=== PATIENT | male | born 1975 | race Two or more races ===

== ENCOUNTER → 2020-10-22 10:30 | Outpatient (REF) | payer MEDICAID, SELFPAY ==
--- NOTE | 2020-10-22 11:00 | CA_ITS ---
Acquisition Time: 2020-10-22 10:59:52 Total Exercise Time: 00:08:50 Test Indications: Dyspnea Medications: NAPROXEN Protocol: WILLY Max HR: 179 BPM 101% of Pred: 176 BPM Max BP: 142/066 mmHG Max Work Load: 10.1 METS Exercise stress ECHO using Willy protocol total of 8 min 50 sec, METS and TAPHR up to 102 %. Pt denies any anginal sx. EKG without arrhythmias, no ischemic changes seen during exercise or in recovery. ECHO images taken at rest and immediately after peak exercise HR achieved. Definity contrast used. Normotensive response to exercise. Test reviewed with Dr. Wiley. Referred By: Yosi Shepherd Overread By: Karol Sousa NP
== END ==
LOC: HO.CARD 10:30
PROVIDERS: Visit Provider Internal Medicine Cardiovascular Disease
DX: R07.9 Chest pain, unspecified (principal)
CPT/HCPCS: 93350; Q9957

== ENCOUNTER 2024-07-12 15:55 | Outpatient (REF) | payer MEDICAID, SELFPAY ==
[2024-07-12 17:50] LABS: MANUAL DIFF FLAG NO
[2024-07-12 17:55] LABS: Basophils Percent Auto 0.4 % (0-2); Eosinophils Absolute Auto 0.1 X10*3/uL (0.0-0.4); Eosinophils Percent Auto 1.9 % (0-4); Hematocrit 46.7 % (42.0-52.0); Hemoglobin 15.9 g/dl (14.0-18.0); Imm Gran Abs Auto 0.03 X10*3/uL (0.00-0.03); Imm Gran Pct Auto 0.4 % (0.0-0.4); Lymphocytes Percent Auto 27.8 % (20-40); Mean Corpuscular Hemoglobin 27.8 pg (27.0-33.0); Mean Corpuscular Volume 81.6 fL (80.0-98.0); Mean Platelet Volume 9.8 fL (9.4-12.4); Monocytes Absolute Auto 0.4 X10*3/uL (0.1-1.2); Monocytes Percent Auto 5.3 % (2-11); Neutrophils Absolute Auto 4.6 x10*3/uL (2.0-8.3); Neutrophils Percent Auto 64.2 % (45-73); Platelet Count 280 X10*3/uL (160-400); Red Blood Count 5.72 X10*6/uL (4.60-5.80); Red Cell Distribution Width 13.1 % (11.0-16.0); White Blood Count 7.2 X10*3/uL (4.8-10.8)
[2024-07-12 18:07] LABS: Appearance Urine Clear; Color Urine Yellow; Glucose Urine UA Negative (Negative); Leukocyte Esterase Urine Negative (Negative); Nitrite Urine Negative (Negative); PH 5.5 (5.0-9.0); Specific Gravity - Urine 1.025 (1.005-1.025); Urine Blood Negative (Negative); Urine Ketones Trace mg/dL (Negative); Urine Protein Negative (Neg-Trace)
[2024-07-12 18:10] LABS: Bacteria Urine None Seen (None Seen); Hyaline Casts Urine 0-2 /LPF (0-2); RBC Urine 0-2 /HPF (0-2); Squamous Epithelial Cell Urine 0-2 /HPF (0-2); WBC Urine 0-5 /HPF (0-5)
[2024-07-12 18:22] LABS: Alanine Aminotransferase 45 U/L (0-40); Albumin Level 4.5 g/dL (3.5-5.0); Alkaline Phosphatase 102 U/L (39-117); Anion Gap 10 (12-20); Aspartate Amino Transferase 41 U/L (5-37); Bilirubin Total 0.6 mg/dL (0.0-1.0); Blood Urea Nitrogen 13 mg/dL (9-16); Calcium 10.1 mg/dL (8.4-10.2); Carbon Dioxide 27 mmol/L (22-29); Chloride 107 mmol/L (96-108); Cholesterol 203 mg/dL (<200); Estimated Glomerular Filt Rate > 60; Glucose Random 118 mg/dL (60-115); HDL Cholesterol 38 mg/dL (>40); Potassium 3.8 mmol/L (3.3-5.1); Sodium 140 mmol/L (135-145); Total Protein 8.4 g/dL (6.5-8.0); Triglycerides 563 mg/dL (<150)
[2024-07-12 18:36] LABS: TSH reflex Free T4 1.49 uIU/mL (0.32-4.0)
== END 2024-07-12 15:56 | disposition home or self-care (01) ==
LOC: HO.CHCLDS 15:55
PROVIDERS: Visit Provider Internal Medicine
DX: I10 Essential (primary) hypertension (principal); R30.0 Dysuria
CPT/HCPCS: 36415; 80053; 80061; 81001; 84443; 85025

== ENCOUNTER 2024-07-17 13:18 | Outpatient (REF) | payer MEDICAID, SELFPAY ==
--- OUTSIDE RECORDS SUMMARY | 2024-07-17 15:00 | XMS_ITS | Clinical Summary ---
Author Organization [facility] [place] Address [address] [place] [address] Care Team Providers Care Assembler Unit Name Role Phone Kevin Basurto MD Primary Care Provider [phone] [phone] Surgical History Surgery Date Site/Laterality Comments TONSILLECTOMY PROCEDURE: HISTORICAL TONSILLECTOMY Social History Tobacco Use Types Packs/Day Years Used Date Smoking Tobacco: Never Smokeless Tobacco: Never Alcohol Use Standard Drinks/Week Comments Never 0 (1 standard drink = 0.6 oz pur e alcohol) Sex and Gender Information Value Date Recorded Sex Assigned at Not on file Gender Identity Not on file Sexual Orientation Not on file Obstetrics History Last Filed Vital Signs Vital Sign Reading Time Taken Comments Blood Pressure - - Pulse - - Temperature - - Respiratory Rate - - Oxygen Saturation - - Inhaled Oxygen Concentration - - Weight 81.6 kg (180 lb) 12/04/2021 3:52 PM EDT Height 162.6 cm (5' 4 ) 12/04/2021 3:52 PM EDT Body Mass Index 30.9 12/04/2021 3:52 PM EDT Plan of Treatment Health Maintenance Due Date Last Done Comments Hepatitis B Vaccines (3 of 3 - 19+ 3-dose series) 01/13/2011 11/18/2010, 10/19/2010, 10/13/2009 DTaP,Tdap,and Td Vaccines (3 - Td or Tdap) 10/14/2019 10/13/2009, 09/10/2009 Cholesterol Screening (Lipid Panel) 05/30/2022 Colorectal Cancer Screening: Colonoscopy 05/30/2022 Depression Screening 05/30/2022 HIV Screening 05/30/2022 Hepatitis C Screening 05/30/2022 Social Influencers of Health Screening 05/30/2022 COVID-19 Vaccine (3 - 2023-2 5 season) 2024 01/19/2021, 12/01/2020 Influenza Vaccine (#1) 2024 0, 05/08/2010 MMR Vaccines Aged Out 10/13/2009, 09/10/2009 No longer eligible based on patient's age to complete this topic Meningococcal ACWY Vaccine Aged Out 08/04/2012 N o longer eligible based on patient's age to complete this topic HIB Vaccines Aged Out No longer eligi ble based on patient's age to complete this topic HPV Vaccines Aged Out No longer eligi ble based on patient's age to complete this topic Hepatitis A Vaccines Aged Out No long er eligible based on patient's age to complete this topic IPV Vaccines Aged Out No longer eligi ble based on patient's age to complete this topic Pneumococcal Vaccine: Pediatrics (0 to 5 Years) and At-Risk Patients (6 to 64 Years) Aged Out No longer eligible b ased on patient's age to complete this topic RSV Immunization Patients Under 20 months Aged Out No longer eligible b ased on patient's age to complete this topic Varicella Vaccines Aged Out No longer eligible based on patient's age to complete this topic Care Teams Assembler Unit Relationship Specialty Start Date End Date Kevin Basurto MD [address] [place] [address] PCP - General Internal Medicine 12/07/21
--- OUTSIDE RECORDS SUMMARY | 2024-07-17 15:01 | XMS_ITS | Encounter Summary ---
Author Organization [employer] Address [address] [place] [address] Care Team Providers Care Canal Structure Operator Name Role Phone Kevin Basurto MD Primary Care Provider [phone]- [phone] Encounter Details Date Type Department Care Team (Latest Contact Info) Description 07/12/2024 Travel Social History Tobacco Use Types Packs/Day Years Used Date Smoking Tobacco: Never Passive Smoke Exposure: Never Smokeless Tobacco: Never Sex and Gender Information Value Date Recorded Sex Assigned at Male 04/26/2022 10:27 AM EDT Legal Sex Male 10:27 AM EDT Gender Identity Choose not to disclose 10:27 AM EDT Sexual Orientation Choose not to disclose 2021 10:27 AM EDT documented as of this encounter Plan of Treatment Upcoming Encounters Date Type Department Care Team (Late st Contact Info) Description 08/23/2024 3:15 PM EST Office Visit [facility] [address] [place] [address] Kevin Basurto MD [address] [place] [address] documented as of this encounter Visit Diagnoses Not on filedocumented in this encounter Care Teams Canal Structure Operator Relationship Specialty Start Date End Date Kevin Basurto MD [address] [place] [address] PCP - General Internal Medicine 12/24/14 documented as of this encounter
--- OUTSIDE RECORDS SUMMARY | 2024-07-17 15:01 | XMS_ITS | Clinical Summary ---
Author Organization [employer] Address [address] [facility] [address] [place] [address] Care Team Providers Care Certified Public Accountant Name Role Phone Kevin Basurto MD Primary Care Provider [phone]- [phone] Allergies No known active allergies Medications Blood Pressure kitIndications:E levated BP without diagnosis of hypertension To check the BP daily 1 kit 11/12/19 23 Active SUMAtriptan (Imitrex) 25 MG tabletIndication s:Migraine with aura and without status migrainosus, not intractable Take 1 tablet (25 mg) by mouth 1 (one) time if needed for migraine for up to 27 doses. May repeat dose once in 2 hours if no relief. Do not exceed 2 doses in 24 hours. 9 tablet 2 07/12/19 25 Active topiramate (Topamax) 50 MG tabletIndication s:Migraine with aura and without status migrainosus, not intractable Take 1 tablet (50 mg) by mouth 2 times daily. 60 tablet 11 07/12/19 25 Active methocarbamol (Robaxin) 750 MG tabletIndication s:Muscle spasm of back Take 1 tablet (750 mg) by mouth 4 times daily for 10 days. 40 tablet 07/12/19 25 025 Active celecoxib (CeleBREX) 200 MG capsuleIndicatio ns:Muscle spasm of back Take 1 capsule (200 mg) by mouth 2 times daily. 60 capsule 07/12/19 25 025 Active Omeprazole 20 MG tablet delayed-releaseI ndications:Gastr oesophageal reflux disease without esophagitis Take 1 tablet (20 mg) by mouth Once per day. 30 tablet 3 07/12/19 25 Active finasteride (Propecia) 1 MG tabletIndication s:Dysuria Take 1 tablet (1 mg) by mouth Once per day. Do not crush, chew, or split. 30 tablet 07/12/19 026 Active lisinopril 5 MG tabletIndication s:Primary hypertension Take 1 tablet (5 mg) by mouth Once per day. 30 tablet 07/12/19 026 Active fenofibrate (Tricor) 48 MG tabletIndication s:Hypertriglycer idemia Take 1 tablet (48 mg) by mouth Once per day. 30 tablet 07/13/19 026 Active methocarbamol (Robaxin) 750 MG tabletIndication s:Muscle spasm of back Take 1 tablet (750 mg) by mouth 4 times daily for 10 days. 40 tablet 12/01/19 025 Discontinued(Re order (will not trigger notification to Pharmacy)) topiramate (Topamax) 50 MG tabletIndication s:Migraine with aura and without status migrainosus, not intractable Take 50 mg by mouth 2 times daily. 60 tablet 12/01/19 025 Discontinued(Re order (will not trigger notification to Pharmacy)) SUMAtriptan (Imitrex) 25 MG tabletIndication s:Migraine with aura and without status migrainosus, not intractable Take 1 tablet (25 mg) by mouth 1 (one) time if needed for migraine for up to 27 doses. May repeat dose once in 2 hours if no relief. Do not exceed 2 doses in 24 hours. 9 tablet 2 12/01/19 025 Discontinued(Re order (will not trigger notification to Pharmacy)) amLODIPine (Norvasc) 5 MG tabletIndication s:Primary hypertension Take 1 tablet (5 mg) by mouth Once per day. 30 tablet 07/12/19 025 Discontinued(En tered in error) Active Problems Problem Noted Date Diagnosed Date Chronic allergic rhinitis 11/11/2022 Overview (11/11/2022): Follow up Dr. Strauss Vitamin D deficiency disease 11/11/2022 Overview (11/11/2022): = 14 01/27/10 = 9 07/21/11 Sciatica 11/30/2017 Migraine 01/20/2015 GLENDY on CPAP 06/06/2012 Overview (11/11/2022): CPAP tit 04/[address] Strauss Hypertriglyceridemia 10/20/2011 Headache(784.0) 10/19/2011 Overview (03/27/2023): Suspect due to chronic rhinosinusitis Follow up supervisor enrobing Dr. Strauss Replace inactive dx Encounters Date Type Department Care Team Description 07/13/2024 Telephone [facility] [address] [place] [address] Kevin Basurto MD 07/13/2024 Orders Only [facility] [address] [place] [address] Kevin Basurto MD Transaminitis (Primary Dx); Hypertriglyceridemia 07/12/2024 3:30 PM EST Office Visit [facility] [address] [place] [address] Kevin Basurto MD Primary hypertension (Primary Dx); Migraine with aura and without status migrainosus, not intractable; Muscle spasm of back; Gastroesophageal reflux disease without esophagitis; Dysuria; Dietary counseling; Exercise counseling; Class 1 obesity due to excess calories with serious comorbidity and body mass index (BMI) of 30.0 to 30.9 in adult 07/12/2024 Travel 07/10/2024 Telephone [facility] [address] [place] [address] [phone] Kevin Basurto MD Chart Prep 07/10/2024 Telephone [facility] [address] [place] [phone] Kevin Basurto MD Nurse Triage from Last 3 Months Immunizations Name Administration Dates Next Due Hep B, adult 11/18/2010,10/19/2010,10/13/2009 Influenza injectable quadriv alent preservative free 05/08/2010 Influenza, IIV3, injectable 05/08/2010 MMR 10/13/2009,09/10/2009 Meningococcal C Conjugate 08/04/2012 Meningococcal MCV4P [id number] 08/04/2012 PPD Test 09/12/2009 TD (adult), 2 Lf tetanus tox oid, preservative free, adsorbed 10/13/2009 Tdap 09/10/2009 Social History Tobacco Use Types Packs/Day Years Used Date Smoking Tobacco: Never Passive Smoke Exposure: Never Smokeless Tobacco: Never Tobacco Cessation:Counseling Given: Not Answered Sex and Gender Information Value Date Recorded Sex Assigned at Male 04/26/2022 10:27 AM EDT Legal Sex Male 10:27 AM EDT Gender Identity Choose not to disclose 10:27 AM EDT Sexual Orientation Choose not to disclose 2021 10:27 AM EDT Last Filed Vital Signs Vital Sign Reading Time Taken Comments Blood Pressure 143/98 07/12/2024 3:24 PM EST Pulse 98 07/12/2024 3:24 PM EST Temperature 36.7 ??C (98 ??F) 07/12/2024 3:24 PM EST Respiratory Rate 20 07/12/2024 3:24 PM EST Oxygen Saturation 97% 07/12/2024 3:24 PM EST Inhaled Oxygen Concentration - - Weight 85.3 kg (188 lb) 07/12/2024 3:24 PM EST Height 167.6 cm (5' 6 ) 07/12/2024 3:24 PM EST Body Mass Index 30.34 07/12/2024 3:24 PM EST Plan of Treatment Upcoming Encounters Date Type Department Care Team (Late st Contact Info) Description 08/23/2024 3:15 PM EST Office Visit [facility] [address] [place] [address] Kevin Basurto MD [address] [place] [address] Health Maintenance Due Date Last Done Comments CT Colonography 1976 Colonoscopy 1976 Colorectal Cancer Screening 1976 Depression Screening 1976 FIT DNA/Cologuard 1976 FIT 1976 FOBT 1976 HIV Screening 1976 SDOH Screening 1976 Sigmoidoscopy 1976 Alcohol/Substance Use Screening 1988 Family Planning (PISQ) 1991 Hepatitis C Screening 1994 Hepatitis B Vaccines (3 of 3 - 19+ 3-dose series) 01/13/2011 11/18/2010, 10/19/2010, 10/13/2009 DTaP/Tdap/Td Vaccines (3 - T d or Tdap) 10/14/2019 10/13/2009, 09/10/2009 COVID-19 Vaccine ( - 2023-2 5 season) 2024 01/19/2021, 12/01/2020 Influenza Vaccine (#1) 2024 0, 05/08/2010 Tobacco Screening 11/30/2024 12/01/2023 Zoster Vaccines (1 of 2) 2026 Lipid Panel 07/12/2029 07/12/2024, 11/27/2020 RSV Patients and Patients Aged 60 years or older (1 - 1-dose 75+ series) 2051 Meningococcal Vaccine Aged Out 08/04/2012 No ana maría sebastian eligible based on patient's age to complete [...] patient's age to complete this topic RSV under 20 months Aged Out No longe r eligible based on patient's age to complete this topic Rotavirus Vaccines Aged Out No longer eligible based on patient's age to complete this topic Procedures Procedure Name Priority Date/Time Associated Diagnosis Comments URINALYSIS, COMPLETE Routine 07/12/2024 4:00 PM EST Dysuria TSH W/REFLEX TO FT4 Routine 07/12/2024 3 :55 PM EST Primary hypertension LIPID PANEL, STANDARD Routine 07/12/2024 3:55 PM EST Primary hypertension CBC WITH AUTO DIFFERENTIAL Routine 07/12/2024 3:55 PM EST Primary hypertension COMPREHENSIVE METABOLIC PANEL Routine 07/12/2024 3:55 PM EST Primary hypertension from Last 3 Months Results * Urinalysis Complete (07/12/2024 4:00 PM EST) Color Urine Yellow [facility] Appearance Urine Clear [facility] PH 5.5 5.0 - 9.0 [facility] Glucose Urine UA Negative Negative mg/dL [facility] Urine Blood Negative Negative [facility] Specific [place] - Urine 1.025 1.005 - 1.025 [facility] Urine Protein Negative Neg-Trace mg/dL [facility] Urine Ketones Trace Negative mg/dL [facility] Nitrite Urine Negative Negative [facility] Leukocyte Esterase Urine Negative Negative [facility] RBC Urine 0-2 0 - 2 /HPF [facility] Urine WBC 0-5 0 - 5 /HPF [facility] Urine Squamous Epithelial Cell 0-2 0 - 2 /HPF [facility] Urine Bacteria None Seen None Seen [facility] Hyaline Casts, Urine 0-2 0 - 2 /LPF [facility] Urine (Urine, Random) 07/12/2024 4:00 PM EST 07/12/2024 5:50 PM EST us Kevin Basurto MD LAB URINE ORDERABLES Final Result [facility] [address] [place] [address] [phone] * TSH W/Reflex to FT4 (07/12/2024 3:55 PM EST) TSH reflex Free T4 1.49 0.32 - 4.0 uIU/mL [facility] Blood Venous blood specimen / Unknown 07/12/2024 3:55 PM EST 07/12/2024 5:47 PM EST Kevin Basurto MD LAB BLOOD ORDERABLES Final Result [facility] [address] [place] [phone] * CBC auto differential (07/12/2024 3:55 PM EST) Pathologist [facility] White Blood Count 7.2 4.8 - 10.8 X10*3/uL [facility] Red Blood Count 5.72 4.60 - 5.80 X10*6/uL [facility] Hemoglobin 15.9 14.0 - 18.0 g/dl [facility] Hematocrit 46.7 42.0 - 52.0 % [facility] Mean Corpuscular Volume 81.6 80.0 - 98.0 fL [facility] Mean Corpuscular Hemoglobin 27.8 27.0 - 33.0 pg [facility] Mean Corpuscular HGB Conc 34.0 31.0 - 36.0 g/dl [facility] Red Cell Distribution Width 13.1 11.0 - 16.0 % [facility] Platelet Count 280 160 - 400 X10*3/uL [facility] Mean Platelet Volume 9.8 9.4 - 12.4 fL [facility] Neutrophils Percent Auto 64.2 45 - 73 % [facility] Imm Gran Pct Auto 0.4 0.0 - 0.4 % [facility] Lymphocytes Percent Auto 27.8 20 - 40 % [facility] Monocytes Percent Auto 5.3 2 - 11 % [facility] Eosinophils Percent Auto 1.9 0 - 4 % [facility] Basophils Percent Auto 0.4 0 - 2 % [facility] NRBC Pct Auto 0.0 0.0 - 0.2 /100WBC [facility] Neutrophils Absolute Auto 4.6 2.0 - 8.3 x10*3/uL [facility] Imm Gran Abs Auto 0.03 0.00 - 0.03 X10*3/uL [facility] Lymphocytes Absolute Auto 2.0 1.2 - 4.9 X10*3/uL [facility] Monocytes Absolute Auto 0.4 0.1 - 1.2 X10*3/uL [facility] Eosinophils Absolute Auto 0.1 0.0 - 0.4 X10*3/uL [facility] Basophils Absolute Auto 0.0 0.0 - 0.2 X10*3/uL [facility] NRBC Abs Auto 0.000 0.0 - 0.012 X10*3/uL [facility] Blood Venous blood specimen / Unknown 07/12/2024 3:55 PM EST 07/12/2024 5:47 PM EST us Kevin Basurto MD LAB BLOOD ORDERABLES Final Result [facility] [address] [place] [address] [phone] * (ABNORMAL) Lipid Panel, Standard (07/12/2024 3:55 PM EST) Triglycerides 563(H) <150 mg/dL [facility] Comment:Mild Lipemia.Desirab le Triglyceride: less than 150 mg/dLBorderline High Triglyceride 150-199 mg/dLHigh Triglyceride: 200-499 mg/dLVery High Triglyceride: greater than or equal to 5OO mg/dL Cholesterol 203(H) <200 mg/dL [facility] Comment:Desirable Cholestero l: less than 200 mg/dLBorderline High Cholesterol: 200-239 mg/dLHigh Cholesterol: greater than 239 mg/dL LDL Cholesterol Calculated TNP <100 mg/dL [facility] Comment:Unable to calculate the LDL. The formula of Friedwald,Mcgraw, and Lucrecia is only valid if the triglycerides areless than 400 mg/dl. HDL Cholesterol 38(L) >40 mg/dL [facility] Comment:Desirable HDL: great er than 40 mg/dL Note: This HDL assay may give artificially low results in patients with liver disease. Blood Venous blood specimen / Unknown 07/12/2024 3:55 PM EST 07/12/2024 5:47 PM EST us Kevin Basurto MD LAB BLOOD ORDERABLES Final Result [facility] [address] [place] [address] [phone] * (ABNORMAL) Comprehensive Metabolic Panel (07/12/2024 3:55 PM EST) Sodium 140 135 - 145 mmol/L [facility] Potassium 3.8 3.3 - 5.1 mmol/L [facility] Chloride 107 96 - 108 mmol/L [facility] Carbon Dioxide 27 22 - 29 mmol/L [facility] Anion Gap 10(L) 12 - 20 [facility] Urea Nitrogen (BUN) 13 9 - 16 mg/dL [facility] Creatinine, Serum 0.95 0.5 - 1.4 mg/dL [facility] Estimated Glomerular Filt Rate >60 [facility] Comment:Chronic Kidney Disea se: Estimated GFR < 60 mL/min/[id number] Kidney Disease: Estimated GFR < 15 mL/min/1.73m2 Glucose 118(H) 60 - 115 mg/dL [facility] Calcium 10.1 8.4 - 10.2 mg/dL [facility] Bilirubin, Total 0.6 0.0 - 1.0 mg/dL [facility] Aspartate Amino Transferase 41(H) 5 - 37 U/L [facility] Alanine Aminotransferase 45(H) 0 - 40 U/L [facility] Total Protein 8.4(H) 6.5 - 8.0 g/dL [facility] Albumin Level 4.5 3.5 - 5.0 g/dL [facility] Alkaline Phosphatase 102 39 - 117 U/L [facility] Blood Venous blood specimen / Unknown 07/12/2024 3:55 PM EST 07/12/2024 5:47 PM EST Kevin Basurto MD LAB BLOOD ORDERABLES Final Result [facility] [address] [place] [address] [phone] from Last [address] [place], [place] [address] Care Teams Certified Public Accountant Relationship Specialty Start Date End Date Kevin Basurto MD [address] [place] [phone] PCP - General Internal Medicine 12/24/14
--- OUTSIDE RECORDS SUMMARY | 2024-07-17 15:01 | XMS_ITS | Encounter Summary ---
Author Organization [employer] Address [address] [facility] 7 [place] [address] Care Team Providers Care Meter And Regulator Shop Supervisor Name Role Phone Kevin Basurto MD Primary Care Provider +1- [phone] Reason for Visit * Reason Onset Date Comments Chart Prep 07/10/2024 Encounter Details Date Type Department Care Team (Late st Contact Info) Description 07/10/2024 Telephone [facility] [address] [place] [address] Kevin Basurto MD [address] [place] [phone] Chart Prep Social History Tobacco Use Types Packs/Day Years [...] AM EDT documented as of this encounter Miscellaneous Notes * Telephone Encounter - Mary Sofia [place] - 07/10/2024 8:27 PM EST Chart Prep Labs: not applicable Images: not applicable Vaccines due: yes Referrals: n/a Screenings: colonoscopy , STI screening Overdue care gaps: Sbirt, SDOH, PHQ-9 documented in this encounter Plan of Treatment Upcoming Encounters Date Type Department Care Team (Late st Contact Info) Description 08/23/2024 3:15 PM EST Office Visit [facility] [address] [place] [address] Kevin Basurto MD [address] [place] [address] documented as of this encounter Visit Diagnoses Not on filedocumented in this encounter Care Teams Meter And Regulator Shop Supervisor Relationship Specialty Start Date End Date Kevin Basurto MD [address] [place] [address] PCP - General Internal Medicine 12/24/14 documented as of this encounter
--- OUTSIDE RECORDS SUMMARY | 2024-07-17 15:01 | XMS_ITS | Encounter Summary ---
Author Organization [employer] Address [address] [place] [address] 7 [place] [address] Care Team Providers Care Patcher Bowling Ball Name Role Phone Kevin Basurto MD Primary Care Provider [phone]- [phone] Encounter Details Date Type Department Care Team (Late st Contact Info) Description 07/12/2024 3:30 PM EST Office Visit [facility] MED & PEDS [address], [place] [phone] Kevin Basurto MD [address] [place] [address] Primary hypertension (Primary Dx); Migraine with aura and without status migrainosus, not intractable; Muscle spasm of back; Gastroesophageal reflux disease without esophagitis; Dysuria; Dietary counseling; Exercise counseling; Class 1 obesity due to excess calories with serious comorbidity and body mass index (BMI) of 30.0 to 30.9 in adult Social History Tobacco Use Types Packs/Day Years [...] AM EDT documented as of this encounter Last Filed Vital Signs Vital Sign Reading [...] Mass Index 30.34 07/12/2024 3:24 PM EST documented in this encounter Progress Notes * Kevin Basurto MD - 07/12/2024 3:30 PM EST Subjective Patient ID: Victor Manuel Alaniz is a 49 y.o. adult who presents for No chief complaint on file.. HPI Patient is here with multiple concern: 1) history of back pain that started 1 week ago located on the left lower back and radiating to theleft lower limb posteriorly. The pain is exacerbated by standing for long. And by walking. Denies any fever/incontinence/urinary retention/saddle anesthesia. 2) patient is complaining of dysuria while [place]. Did not have a urinalysis over there. No reported fever over the. Treated with finasteride with improvement of his symptoms. He is requesting to get a refill here. 3) history of gastroesophageal reflux disease. Patient admits dietary indiscretion is getting greasy food, spicy food etc. He would like to get a refill on his omeprazole. 4) history of migraine headache. Was treated in the past with sumatriptan and Topamax which controlled his headache. Has been using Tylenol for his headache 3-4 times a week lately. He also admits photophobia and phonophobia. He would like to resume Topamax and sumatriptan. Patient Active Problem List Diagnosis Chronic allergic rhinitis Headache(784.0) Hypertriglyceridemia Migraine GLENDY on CPAP Sciatica Vitamin D deficiency disease Current Outpatient Medications on File Prior to Visit Medication Sig Dispense Refill Blood Pressure kit To check the BP daily 1 kit 0 [DISCONTINUED] methocarbamol (Robaxin) 750 MG tablet Take 1 tablet (750 mg) by mouth 4 times daily for 10 days. 40 tablet 0 [DISCONTINUED] SUMAtriptan (Imitrex) 25 MG tablet Take 1 tablet (25 mg) by mouth 1 (one) time if needed for migraine for up to 27 doses. May repeat dose once in 2 hours if no relief. Do not exceed 2 doses in 24 hours. 9 tablet 2 [DISCONTINUED] topiramate (Topamax) 50 MG tablet Take 50 mg by mouth 2 times daily. 60 tablet 11 No current facility-administered medications on file prior to visit. No Known Allergies Review of Systems Constitutional: Negative for appetite change, chills, diaphoresis, fatigue and fever. HENT: Negative for dental problem, drooling and ear discharge. Respiratory: Negative for choking and shortness of breath. Cardiovascular: Negative for palpitations and leg swelling. Endocrine: Negative for cold intolerance, heat intolerance and polydipsia. Genitourinary: Positive for dysuria. Negative for enuresis, flank pain, frequency and genital sores. Musculoskeletal: Positive for back pain. Negative for gait problem, joint swelling, myalgias, neck pain and neck stiffness. Objective Physical Exam Constitutional: General: Victor Manuel is not in acute distress. Appearance: Normal appearance. Victor Manuel is obese. Victor Manuel is not ill-appearing, toxic-appearing or diaphoretic. Cardiovascular: Rate and Rhythm: Normal rate. Pulmonary: Effort: Pulmonary effort is normal. Musculoskeletal: Lumbar back: Spasms and tenderness present. Negative right straight leg raise test and negative left straight leg raise test. Neurological: General: No focal deficit present. Mental Status: Victor Manuel is alert. Assessment/Plan Diagnoses and all orders for this visit: Primary hypertension Comments: Uncontrolled DASH diet Start Orders: - Comprehensive Metabolic Panel; Future - CBC auto differential; Future - Lipid Panel, Standard; Future - TSH W/Reflex to FT4; Future - lisinopril 5 MG tablet; Take 1 tablet (5 mg) by mouth Once per day. Migraine with aura and without status migrainosus, not intractable Comments: Advised to avoid using sumatriptan more than 3 times a week for breakthrough headache Orders: - SUMAtriptan (Imitrex) 25 MG tablet; Take 1 tablet (25 mg) by mouth 1 (one) time if needed for migraine for up to 27 doses. May repeat dose once in 2 hours if no relief. Do not exceed 2 doses in 24 hours. - topiramate (Topamax) 50 MG tablet; Take 1 tablet (50 mg) by mouth 2 times daily. Muscle spasm of back Comments: Moist heat Gentle stretching exercises Follow-up in 4 weeks as scheduled Orders: - methocarbamol (Robaxin) 750 MG tablet; Take 1 tablet (750 mg) by mouth 4 times daily for 10 days. - celecoxib (CeleBREX) 200 MG capsule; Take 1 capsule (200 mg) by mouth 2 times daily. Gastroesophageal reflux disease without esophagitis Comments: Head of bed elevation Avoid dietary irritants Avoid eating 3 hours prior to bedtime Orders: - Omeprazole 20 MG tablet delayed-release; Take 1 tablet (20 mg) by mouth Once per day. Dysuria - Urinalysis Complete; Future - finasteride (Propecia) 1 MG tablet; Take 1 tablet (1 mg) by mouth Once per day. Do not crush, chew, or split. Dietary counseling Exercise counseling Class 1 obesity due to excess calories with serious comorbidity and body mass index (BMI) of 30.0 to 30.9 in adult Discussed calorie deficit, recommended reduction of 20-30% of maintenance calories; ceramic capacitor processor referral offered. Recommended to decrease soda and sugary beverage consumption. Recommended at least 20 g per meal of protein to assist with satiety. Recommended at least 150 min/week of moderate intensity exercise. documented in this encounter Plan of Treatment Upcoming Encounters Date Type Department Care Team (Late st Contact Info) Description 08/23/2024 3:15 PM EST Office Visit [facility] MED & PEDS [address] [place] [phone] Kevin Basurto MD [address] [place] [phone] documented as of this encounter Procedures Procedure Name Priority Date/Time Associated Diagnosis Comments URINALYSIS, COMPLETE Routine 07/12/2024 4:00 PM EST Dysuria TSH W/REFLEX TO FT4 Routine 07/12/2024 3 :55 PM EST Primary hypertension CBC WITH AUTO DIFFERENTIAL Routine 07/12/2024 3:55 PM EST Primary hypertension LIPID PANEL, STANDARD Routine 07/12/2024 3:55 PM EST Primary hypertension COMPREHENSIVE METABOLIC PANEL Routine 07/12/2024 3:55 PM EST Primary hypertension documented in this encounter Results * Urinalysis Complete (07/12/2024 4:00 PM EST) Color Urine Yellow [facility] Appearance Urine Clear [facility] PH 5.5 5.0 - 9.0 [facility] Glucose Urine UA Negative Negative mg/dL [facility] Urine Blood Negative Negative [facility] Specific [place] - Urine 1.025 1.005 - 1.025 [facility] Urine Protein Negative Neg-Trace mg/dL [facility] Urine Ketones Trace Negative mg/dL [facility] Nitrite Urine Negative Negative [facility] Leukocyte Esterase Urine Negative Negative [facility] RBC Urine 0-2 0 - 2 /HPF [facility] Urine WBC 0-5 0 - 5 /HPF [facility] Urine Squamous Epithelial Cell 0-2 0 - 2 /HPF [facility] Urine Bacteria None Seen None Seen [facility] Hyaline Casts, Urine 0-2 0 - 2 /LPF [facility] Urine (Urine, Random) 07/12/2024 4:00 PM EST 07/12/2024 5:50 PM EST Kevin Basurto MD LAB URINE ORDERABLES Final Result [facility] [address] [place] [phone] * TSH W/Reflex to FT4 (07/12/2024 3:55 PM EST) TSH reflex Free T4 1.49 0.32 - 4.0 uIU/mL [facility] Blood Venous blood specimen / Unknown 07/12/2024 3:55 PM EST 07/12/2024 5:47 PM EST us Kevin Basurto MD LAB BLOOD ORDERABLES Final Result [facility] [address] [place] [address] [phone] * (ABNORMAL) Lipid Panel, Standard (07/12/2024 3:55 PM EST) Triglycerides 563(H) <150 mg/dL [facility] Comment:Mild Lipemia.Desirab le Triglyceride: less than 150 mg/dLBorderline High Triglyceride 150-199 mg/dLHigh Triglyceride: 200-499 mg/dLVery High Triglyceride: greater than or equal to 5OO mg/dL Cholesterol 203(H) <200 mg/dL [facility] Comment:Desirable Cholestero l: less than 200 mg/dLBorderline High Cholesterol: 200-239 mg/dLHigh Cholesterol: greater than 239 mg/dL LDL Cholesterol Calculated TNP <100 mg/dL [facility] Comment:Unable to calculate the LDL. The formula of Friedwald,Mcgraw, and Lucrecia is only valid if the triglycerides areless than 400 mg/dl. HDL Cholesterol 38(L) >40 mg/dL [facility] Comment:Desirable HDL: great er than 40 mg/dL Note: This HDL assay may give artificially low results in patients with liver disease. Blood Venous blood specimen / Unknown 07/12/2024 3:55 PM EST 07/12/2024 5:47 PM EST us Kevin Basurto MD LAB BLOOD ORDERABLES Final Result [facility] [address] [place] [address] [phone] * CBC auto differential (07/12/2024 3:55 PM EST) White Blood Count 7.2 4.8 - 10.8 X10*3/uL [facility] Red Blood Count 5.72 4.60 - 5.80 X10*6/uL [facility] Hemoglobin 15.9 14.0 - 18.0 g/dl [facility] Hematocrit 46.7 42.0 - 52.0 % [facility] Mean Corpuscular Volume 81.6 80.0 - 98.0 fL [facility] Mean Corpuscular Hemoglobin 27.8 27.0 - 33.0 pg [facility] Mean Corpuscular HGB Conc 34.0 31.0 - 36.0 g/dl [facility] Red Cell Distribution Width 13.1 11.0 - 16.0 % [facility] Platelet Count 280 160 - 400 X10*3/uL [facility] Mean Platelet Volume 9.8 9.4 - 12.4 fL [facility] Neutrophils Percent Auto 64.2 45 - 73 % [facility] Imm Gran Pct Auto 0.4 0.0 - 0.4 % [facility] Lymphocytes Percent Auto 27.8 20 - 40 % [facility] Monocytes Percent Auto 5.3 2 - 11 % [facility] Eosinophils Percent Auto 1.9 0 - 4 % [facility] Basophils Percent Auto 0.4 0 - 2 % [facility] NRBC Pct Auto 0.0 0.0 - 0.2 /100WBC [facility] Neutrophils Absolute Auto 4.6 2.0 - 8.3 x10*3/uL [facility] Imm Gran Abs Auto 0.03 0.00 - 0.03 X10*3/uL [facility] Lymphocytes Absolute Auto 2.0 1.2 - 4.9 X10*3/uL [facility] Monocytes Absolute Auto 0.4 0.1 - 1.2 X10*3/uL [facility] Eosinophils Absolute Auto 0.1 0.0 - 0.4 X10*3/uL [facility] Basophils Absolute Auto 0.0 0.0 - 0.2 X10*3/uL [facility] NRBC Abs Auto 0.000 0.0 - 0.012 X10*3/uL [facility] Blood Venous blood specimen / Unknown 07/12/2024 3:55 PM EST 07/12/2024 5:47 PM EST us Kevin Basurto MD LAB BLOOD ORDERABLES Final Result [facility] [address] [place] [phone] * (ABNORMAL) Comprehensive Metabolic Panel (07/12/2024 3:55 PM EST) Sodium 140 135 - 145 mmol/L [facility] Potassium 3.8 3.3 - 5.1 mmol/L [facility] Chloride 107 96 - 108 mmol/L [facility] Carbon Dioxide 27 22 - 29 mmol/L [facility] Anion Gap 10(L) 12 - 20 [facility] Urea Nitrogen (BUN) 13 9 - 16 mg/dL [facility] Creatinine, Serum 0.95 0.5 - 1.4 mg/dL [facility] Estimated Glomerular Filt Rate >60 [facility] Comment:Chronic Kidney Disea se: Estimated GFR < 60 mL/min/1.99n3Ezpsil Kidney Disease: Estimated GFR < 15 mL/min/1.73m2 Glucose 118(H) 60 - 115 mg/dL [facility] Calcium 10.1 8.4 - 10.2 mg/dL [facility] Bilirubin, Total 0.6 0.0 - 1.0 mg/dL [facility] Aspartate Amino Transferase 41(H) 5 - 37 U/L [facility] Alanine Aminotransferase 45(H) 0 - 40 U/L [facility] Total Protein 8.4(H) 6.5 - 8.0 g/dL [facility] Albumin Level 4.5 3.5 - 5.0 g/dL [facility] Alkaline Phosphatase 102 39 - 117 U/L [facility] Blood Venous blood specimen / Unknown 07/12/2024 3:55 PM EST 07/12/2024 5:47 PM EST us Kevin Basurto MD LAB BLOOD ORDERABLES Final Result [facility] [address] [place] [phone] documented in this encounter Visit Diagnoses Diagnosis Primary hypertension- Primary Unspecified essential hypertension Migraine with aura and without status migrainosus, not intractable Muscle spasm of back Gastroesophageal reflux disease without esophagitis Esophageal reflux Dysuria Dietary counseling Dietary surveillance and counseling Exercise counseling Class 1 obesity due to excess calories with serious comorbidity and body mass index (BMI) of 30.0 to 30.9 in adult documented in this encounter Care Teams Patcher Bowling Ball Relationship Specialty Start Date End Date Kevin Basurto MD [address] [place] [phone] PCP - General Internal Medicine 12/24/14 documented as of this encounter
--- OUTSIDE RECORDS SUMMARY | 2024-07-17 15:01 | XMS_ITS | Encounter Summary ---
Author Organization [employer] Address [address] [facility] [address] [place] [address] Care Team Providers Care Guide Setter Name Role Phone Kevin Basurto MD Primary Care Provider [phone]- [phone] Encounter Details Date Type Department Care Team (Late st Contact Info) Description 07/13/2024 Telephone [facility] [address], [place] [phone] Kevin Basurto MD [address] [place] [address] Social History Tobacco Use Types Packs/Day Years [...] encounter Miscellaneous Notes * Telephone Encounter - Hernandez Ernst RN - 07/13/2024 3:24 PM EST TC placed, spoke with pt, inform of message below from PCP. Pt requested for lab results to be mailed, address confirmed. Pt verbalized understanding and agreed to plan. * Telephone Encounter - Hernandez Ernst RN - 07/13/2024 3:23 PM EST ----- Message from Kevin Basurto MD sent at 07/13/2024 10:53 AM EST ----- Please call. Labs reviewed: 1) High triglyceride > 500. Lifestyle factors, including obesity and concentrated sugar intake could be the cause. Please advise a low carb diet. This high Tg level place patient at risk of pancreatitis. I will start Fenofibrate. 2) Elevated liver enzymes. I will order a hepatitis panel and an US Of the abdomen. ----- Message ----- From: Interface, Lab Results In Sent: 07/12/2024 5:56 PM EST To: Kevin Basurto MD documented in this encounter Plan of Treatment Upcoming Encounters Date Type Department Care Team (Late st Contact Info) Description 08/23/2024 3:15 PM EST Office Visit [facility] [address] [place] [address] Kevin Basurto MD [address] [place] [address] documented as of this encounter Visit Diagnoses Not on filedocumented in this encounter Care Teams Guide Setter Relationship Specialty Start Date End Date Kevin Basurto MD [address] [place] [phone] PCP - General Internal Medicine 12/24/14 documented as of this encounter
--- OUTSIDE RECORDS SUMMARY | 2024-07-17 15:01 | XMS_ITS | Clinical Summary ---
Author Organization [facility] Address [address] [place] [address] Care Team Providers Care Software Clerk Name Role Phone Zonia Reeder Primary Care Provider [phone]- [phone] Source Comments PLEASE NOTE, if this patient is a minor, it may be UNLAWFUL to discuss sensitive information that is contained in these records (such as FAMILY PLANNING, MENTAL HEALTH or SUBSTANCE ABUSE) with the minor patient's parent or other person without the patient's specific authorization.[facility] Allergies No known active allergies Medications vitamin D 2,000 unit capsuleIndicati ons:Vitamin D deficiency disease Take 1 Cap by mouth once daily. 30 Cap 4 12/18/2013 Active diphenhydrAMINE (BENADRYL) 50 mg tabletIndicatio ns:Insomnia Take 1 Tab by mouth nightly at bedtime as needed for sleep. 30 Tab 4 12/18/2013 Active ibuprofen (ADVIL,MOTRIN) 800 mg tabletIndicatio ns:Chronic LBP,Right shoulder pain Take 1 Tab by mouth 3 (three) times daily as needed for pain. 90 Tab 1 12/18/2013 Active omega 3-dha-fish oil-epa 1,000 (120-180) mg capsuleIndicati ons:Hypertrigly ceridemia Take 1 Cap by mouth 2 (two) times daily with a meal. 60 Cap 4 12/18/2013 Active Active Problems Problem Noted Date Diagnosed Date GLENDY on CPAP 06/06/2012 Overview (05/04/2013): CPAP tit 04/[address] Strauss Hypertriglyceridemia 10/20/2011 Headaches 10/19/2011 Overview (05/04/2013): Suspect due to chronic rhinosinusitis Follow up audio visual secretary Dr. Strauss Chronic LBP 10/13/2009 Overview (05/04/2013): X-rays 03/19/10 = mild degeneration lower L-spine MRI L-spine 11/18/10 = small disc bulge @ L1-L2 follow up neurosurgeon Dr. Diamond Vitamin D deficiency disease Overview (05/04/2013): = 14 01/27/10 = 9 07/21/11 Chronic allergic rhinitis Overview (05/04/2013): Follow up Dr. Strauss Immunizations Name Administration Dates Next Due Hep B, Adult/Adol (ENERGIX/RECOMBIVAX) 1,10/19/2010,10/13/2009 INFLUENZA, SEASONAL, INJECTABLE 05/08/2010 MENINGOCOCCAL VACCINE,CONJUG ATE (NON-INTERFACE) 08/04/2012 MMR (MMR II/Priorix) 10/13/2009,09/10/2009 Moderna COVID-19 Vaccine, re d cap blue label, 12+ Primary Series 01/19/2021,12/01/2020 PPD 09/12/2009 TDAP 09/10/2009 Td(adult),2 Lf tetanus toxoi d,preservative free 10/13/2009 Social History Tobacco Use Types Packs/Day Years Used Date Smoking Tobacco: Never Smokeless Tobacco: Never Alcohol Use Standard Drinks/Week Comments No 0 (1 standard drink = 0.6 oz pur e alcohol) Social Connections Answer Date Recorded Connectedness 0 03/14/2024 Financial Resource Strain Answer Date R ecorded Financial Resource Strain 0 2023 Stress Answer Date Recorded Stress 0 01/28/2024 Physical Activity Answer Date Recorded Physical Activity 0 01/28/2024 Food Insecurity Answer Date Recorded Food 0 03/22/2024 Transportation Needs Answer Date Record ed Transportation 0 01/28/2024 Housing Stability Answer Date Recorded Housing 0 01/28/2024 Safety and Environment Answer Date Robby rded Safety 0 01/28/2024 Utilities Answer Date Recorded Utilities 0 01/28/2024 Employment Answer Date Recorded Stress 0 03/14/2024 Sex and Gender Information Value Date Recorded Sex Assigned at Not on file Legal Sex Male 11:36 AM PDT Gender Identity Not on file Sexual Orientation Not on file Last Filed Vital Signs Vital Sign Reading Time Taken Comments Blood Pressure 104/62 12/18/2013 4:06 PM EDT Pulse 72 12/18/2013 4:06 PM EDT Temperature 36.9 ??C (98.5 ??F) 12/18/2013 4:06 PM ED T Respiratory Rate 16 12/18/2013 4:06 PM EDT Oxygen Saturation - - Inhaled Oxygen Concentration - - Weight 76 kg (167 lb 9.6 oz) 12/18/2013 4:06 PM EDT Height 170.2 cm (5' 7 ) 12/18/2013 4:06 PM EDT Body Mass Index 26.25 12/18/2013 4:06 PM EDT Plan of Treatment Health Maintenance Due Date Last Done Comments Hepatitis C Screening 1976 Tobacco Screening 1976 HIV Screening 1991 Imm-Hepatitis B (3 of 3 - 19 + 3-dose series) 01/13/2011 11/18/2010, 10/19/2010, 10/13/2009 Hypertension Screening (#1) 12/18/2014 Diabetes Screening 05/09/2016 05/09/2013, 05/09/2013 Lipid Screening 05/09/2018 05/09/2013 Imm-DTaP/Tdap/Td (3 - Td or Tdap) 10/14/2019 010, 09/10/2009 CT Colonography 2021 Colonoscopy 2021 Colorectal Cancer Screening 2021 FIT/gFOBT 2021 Fecal DNA 2021 Flexible Sigmoidoscopy 2021 [id number] ( season) 2024 021, 12/01/2020 Imm-Influenza (#1) 2024 05/08/2010 Alcohol and Drug Screen 06/27/2024 Depression Annual Screen 06/27/2024 Procedures Procedure Name Priority Date/Time Associated Diagnosis Comments COMPREHENSIVE METABOLIC PANEL Routine 05/09/2013 10:50 AM EST Routine general medical examination at a health care facility LIPID PANEL Routine 05/09/2013 10:50 AM EST Hypertriglyceridemi a from Last 3 Months or Most Recently Relevant to Health Maintenance Results * (ABNORMAL) LIPID PANEL (05/09/2013 10:50 AM EST) CHOLESTEROL 192 0 - 200 mg/dL [facility] TRIGLYCERIDES 199(H) 0 - 150 mg/dL [facility] HDL CHOLESTEROL 49 >40 mg/dL [facility] LDL CALCULATED 104(H) 0 - 100 mg/dL [facility] TC-HDLC RATIO 3.9 0 - 4.4 mg/dL [facility] Blood specimen (specimen) Blood / Unknown 05/09/2013 10:50 AM EST 05/09/2013 10:57 AM EST Narrative [facility] - 05/09/2013 12:52 PM EST [facility] [address] [place] [address] [place] [id number] ORD# [id number] [facility] - B[place]OD [place] [address], * COMPRE METAB PANEL (05/09/2013 10:50 AM EST) GLUCOSE 80 70 - 100 mg/dL [facility] Comment:Reference range appl icable to fasting specimens only BUN 12 5 - 25 mg/dL [facility] CREAT 0.87 0.7 - 1.3 mg/dL [facility] GLOMERULAR FILTRATION RATE >60 [facility] Comment: If patient is -[place], multiply result by 1.21 Chronic Kidney Disease: < 60 ml/min/1.73 square meters Kidney Failure: < 15 ml/min/1.73 square meters SODIUM 139 133 - 145 mEq/L [facility] POTASSIUM 4.7 3.5 - 5.5 mEq/L [facility] CHLORIDE 102 96 - 110 mEq/L [facility] CO2 27 21 - 32 mEq/L [facility] ANION GAP 10 3 - 11 [facility] CALCIUM 9.9 8.5 - 10.5 mg/dL [facility] TOTAL PROTEIN 8.0 6.0 - 8.0 G/dL [facility] ALBUMIN 4.9 3.2 - 5.0 G/dL [facility] BILI, TOTAL 0.7 0.0 - 1.4 mg/dL [facility] SGOT 29 10 - 42 U/L [facility] SGPT 38 10 - 60 U/L [facility] ALK PHOS 116 42 - 121 U/L [facility] Blood specimen (specimen) Blood / Unknown 05/09/2013 10:50 AM EST 05/09/2013 10:57 AM EST Narrative [facility] - 05/09/2013 12:52 PM EST [facility] [address] [place] [address] [place] [id number] ORD# [id number] us [facility] - BLOOD DRAW Final Res ult [facility] [address] [place] [address], from Last 3 Months or Most Recently Relevant to Health Maintenance Insurance [employer] Care Teams Software Clerk Relationship Specialty Start Date End Date Zonia Reeder PA [address] [place] [phone] PCP - General 02/08/13
--- OUTSIDE RECORDS SUMMARY | 2024-07-17 15:01 | XMS_ITS | Encounter Summary ---
Author Organization [employer] Address [address] 7 [place] [address] Care Team Providers Care Education Sales Consultant Name Role Phone Kevin Basurto MD Primary Care Provider [phone]- [phone] Reason for Visit * Reason Onset Date Comments Nurse Triage 07/10/2024 Encounter Details Date Type Department Care Team (Late st Contact Info) Description 07/10/2024 Telephone [facility] [address] [place] [address] Kevin Basurto MD [address] [place] [address] Nurse Triage Social History Tobacco Use Types Packs/Day Years [...] encounter Miscellaneous Notes * Telephone Encounter - Kary Fraser RN - 07/10/2024 1:35 PM EST Call returned to Victor Manuel Alaniz to triage below. Reports having lower back pain that radiates to left leg x 1 week. Is usually chronic but worsening. Using ibuprofen PRN. Pt reports having numbness intermittently. Pt denies any difficulty walking. Denies any abd pain or urinary sx. Pt denies any injury or fall. Pt advised of disposition, agrees to sick on site with PCP on . Reviewed home care advise, ER precautions and reasons to call back. Protocol Used: Back Pain (Adult) Protocol-Based Disposition: See in Office or Video Visit within 3 Days Future Appointments Date Time Provider Department Center 07/12/2024 3:30 PM Kevin Basurto MD [facility] Insurance verified as active per Real Time Eligibility in [facility]. Video visit offer not recorded Positive Triage Question: * Pain radiates into the thigh or further down the leg * All higher-acuity triage questions were negative Care Advice Discussed: * Reassurance and Education - Back Pain * Cold or Heat * Continue Activity * Pain Medicines * Reasons To Call Back - Fever occurs - Numbness or weakness occurs - Loss of control of your bladder or bowel - Severe pain not better after taking pain medicines - You become worse * Telephone Encounter - Kim Gil - 07/10/2024 1:22 PM EST Tc from pt returning call. [facility] in info was forwarded. * Telephone Encounter - Hortensia Nguyen RN - 07/10/2024 12:41 PM EST Called pt. No answer. Left message on pt. Voicemail to call back [facility] triage nurses at [phone]. Called pt. X2. No answer. Left second message for pt. To call back [facility] nurses at [phone] or if needs to be seen can go to [facility] walk in on [address] In [place], [place]. On first floor. Do not need appt and open until 730pm tonight. RE: Back pain/ numbness in leg * Telephone Encounter - Raudel Joaquin - 07/10/2024 11:41 AM EST Symptoms: Back Pain - Not From Injury, Fever Outcome: Schedule an urgent appointment (within 1 hour) or talk to a nurse or provider soon Reason: Numbness of the leg The caller accepted this outcome. documented in this encounter Plan of Treatment Upcoming Encounters Date Type Department Care Team ([facility] st Contact Info) Description 08/23/2024 3:15 PM EST Office Visit [facility] [address] [place] [address] Kevin Basurto MD [address] [place] [address] documented as of this encounter Visit Diagnoses Not on filedocumented in this encounter Care Teams Education Sales Consultant Relationship Specialty Start Date End Date Kevin Basurto MD [address] [place] [id number] PCP - General Internal Medicine 12/24/14 documented as of this encounter
--- OUTSIDE RECORDS SUMMARY | 2024-07-17 15:01 | XMS_ITS | Encounter Summary ---
Author Organization [employer] Address [address] [place] [address] 7 [place] [address] Care Team Providers Care Field Sales Manager Name Role Phone Kevin Basurto MD Primary Care Provider [phone] [phone] Reason for Referral * Imaging (Routine) - Authorized Specialty Diagnoses / Procedures Referred By Contac t Referred To Contact Radiology Diagnoses Transaminitis Procedures US Abdomen Complete Kevin Basurto MD [address] [place] [address] Phone: tel: fax: [address] Phone: tel: fax: Referral ID Status Reason Start Date Expiration Date V isits Requested Visits Authorized [id number] Authorized 07/13/2024 07/13/2025 1 1 Encounter Details Date Type Department Care Team (Late st Contact Info) Description 07/13/2024 Orders Only [facility] [address] [place] [address] Kevin Basurto MD [address] [place] [address] Transaminitis (Primary Dx); Hypertriglyceridemia Social History Tobacco Use Types Packs/Day Years [...] Description 08/23/2024 3:15 PM EST Office Visit [facility] [address] [place] [address] Kevin Basurto MD [address] [place] [address] Scheduled Orders Name Type Priority Associated Diagnoses Orde r Schedule Hepatitis A,B,C Profile Lab Routine Transaminitis Expected: 07/13/2024, Expires: 07/13/2025 US Abdomen Complete Imaging Routine Transaminitis Expected: 07/13/2024, Expires: 07/13/2025 documented as of this encounter Visit Diagnoses Diagnosis Transaminitis- Primary Nonspecific elevation of levels of transaminase or lactic acid dehydrogenase (LDH) Hypertriglyceridemia Pure hyperglyceridemia documented in this encounter Care Teams Field Sales Manager Relationship Specialty Start Date End Date Keivn Basurto MD [address] [place] [address] PCP - General Internal Medicine 12/24/14 documented as of this encounter
--- OUTSIDE RECORDS SUMMARY | 2024-07-17 15:01 | XMS_ITS | Encounter Summary ---
Author Organization [employer] Address [address] [place] [address] 7 [place] [address] Care Team Providers Care Manufacturing Process Technician Name Role Phone Kevin Basurto MD Primary Care Provider [phone]- [phone] Encounter Details Date Type Department Care Team (Late Contact Info) Description 12/03/2022 Orders Only [facility] [address] [place], [place] [id number] Karien Mancilla LPN Social History Tobacco Use Types Packs/Day Years Used Date Smoking Tobacco: Never Passive Smoke Exposure: Never Smokeless Tobacco: Never Sex and Gender Information Value Date Recorded Sex Assigned at Male 04/26/2022 10:27 AM EDT Legal Sex Male 10:27 AM EDT Gender Identity Choose not to disclose 10:27 AM EDT Sexual Orientation Choose not to disclose 2021 10:27 AM EDT COVID-19 Exposure Response Date Recorded In the last 10 days, have yo u been in contact with someone who was confirmed or suspected to have Coronavirus/COVID-19? No / Unsure 11/11/2022 1:04 PM EDT documented as of this encounter Plan of Treatment Upcoming Encounters Date Type Department Care Team (Late st Contact Info) Description 08/23/2024 3:15 PM EST Office Visit [facility] [address] [place] [address] Kevin Basurto MD [address] [place] [address] documented as of this encounter Visit Diagnoses Not on filedocumented in this encounter Care Teams Manufacturing Process Technician Relationship Specialty Start Date End Date Kevin Basurto MD [address] [place] [address] PCP - General Internal Medicine 12/24/14 documented as of this encounter
[2024-07-18 08:18] LABS: HBS Num1 12.44 mIU/mL (0-7.99); HBc Num1 0.06 S/CO (0.00-0.79); HBsAGNum1 0.36 S/CO (0.00-0.99); Hepatitis A Antibody IgM 0.18 Index (0-0.79); Hepatitis B Core Antibody Nonreactive (Nonreactive); Hepatitis B Surface Antigen Negative (Negative); ~HepC Num1 0.35 S/CO (0.00-0.79); ~Hepatitis A Antibody IgM Nonreactive (Nonreactive); ~Hepatitis B Surface Antibody REACTIVE (Nonreactive); ~Hepatitis C Antibody Nonreactive (Nonreactive)
== END 2024-07-17 13:19 | disposition home or self-care (01) ==
LOC: HO.CHCLDS 13:18
PROVIDERS: Visit Provider Internal Medicine
DX: R74.01 Elevation of levels of liver transaminase levels (principal)
CPT/HCPCS: 36415; 86704; 86706; 86709; 86803; 87340

== ENCOUNTER 2024-12-24 09:48 | Outpatient (REF) | payer MEDICAID, SELFPAY ==
[2024-12-24 15:20] LABS: Alanine Aminotransferase 46 U/L (0-40); Albumin Level 4.7 g/dL (3.5-5.0); Alkaline Phosphatase 89 U/L (39-117); Anion Gap 11 (12-20); Aspartate Amino Transferase 27 U/L (5-37); Bilirubin Total 0.5 mg/dL (0.0-1.0); Blood Urea Nitrogen 20 mg/dL (9-16); C Reactive Protein 0.25 mg/dL (< or = 0.50); Calcium 9.2 mg/dL (8.4-10.2); Carbon Dioxide 22 mmol/L (22-29); Chloride 111 mmol/L (96-108); Cholesterol 202 mg/dL (<200); Estimated Glomerular Filt Rate > 60; Glucose Random 94 mg/dL (60-115); HDL Cholesterol 39 mg/dL (>40); LDL Cholesterol Calculated 128 mg/dL (<100); Potassium 3.9 mmol/L (3.3-5.1); Sodium 140 mmol/L (135-145); Total Protein 7.4 g/dL (6.5-8.0); Triglycerides 179 mg/dL (<150)
[2024-12-24 15:42] LABS: Erythrocyte Sedimentation Rate 4 MM/HR (0-15)
== END 2024-12-24 09:49 | disposition home or self-care (01) ==
LOC: HO.CHCLDS 09:48
PROVIDERS: Visit Provider Internal Medicine
DX: E78.1 Pure hyperglyceridemia (principal); M62.830 Muscle spasm of back
CPT/HCPCS: 36415; 80053; 80061; 85652; 86140

== ENCOUNTER 2025-01-17 06:41 | Outpatient (REF) | payer MEDICAID, SELFPAY ==
--- OUTSIDE RECORDS SUMMARY | 2025-01-17 06:44 | XMS_ITS | Clinical Summary ---
Author Organization [facility] Address [address] [place] [address] Care Team Providers Care Truck Sales Representative Name Role Phone Zonia Reeder Primary Care Provider +1- [phone] Source Comments PLEASE NOTE, if this patient [...] Suspect due to chronic rhinosinusitis Follow up senior firmware engineer Dr. Strauss Chronic LBP 10/13/2009 Overview (05/04/2013): X-rays 03/19/10 = mild degeneration lower L-spine MRI L-spine 11/18/10 = small disc bulge @ L1-L2 follow up neurosurgeon Dr. Diamond Vitamin D deficiency disease Overview (05/04/2013): = 14 01/27/10 = 9 07/21/11 Chronic allergic rhinitis Overview (05/04/2013): Follow up Dr. Strauss Immunizations Immunization Administration Dates Next Due Hep B, Adult/Adol ([id number]-N-YBQAL/RECOMBIVAX-ADULT) 11/18/2010,10/19/2010,10/13/2009 INFLUENZA, SEASONAL, INJECTABLE 05/08/2010 MENINGOCOCCAL VACCINE,CONJUG ATE (NON-INTERFACE) 08/04/2012 MMR (MMR II/Priorix) 10/13/2009,09/10/2009 Moderna COVID-19 Vaccine, re d cap blue label, 12+ Primary Series 01/19/2021,12/01/2020 PPD 09/12/2009 TDAP 09/10/2009 Td (adult),2 Lf tetanus toxo id (TDVAX), preservative free 10/13/2009 Social History Tobacco Use Types [...] 72 12/18/2013 4:06 PM EDT Temperature 36.9 C (98.5 F) 12/18/2013 4:06 PM EDT Respiratory Rate 16 12/18/2013 4:06 PM EDT Oxygen Saturation - - Inhaled Oxygen Concentration - - Weight 76 kg (167 lb 9.6 oz) 12/18/2013 4:06 PM EDT Height 170.2 cm (5' 7 ) 12/18/2013 4:06 PM EDT Body Mass Index 26.25 12/18/2013 4:06 PM EDT Plan of Treatment Health Maintenance Due Date Last Done Comments Anxiety Screening 1976 Hepatitis C Screening 1976 Tobacco Screening 1976 HIV Screening 1991 Imm-Hepatitis B (3 of 3 - 19 + 3-dose series) 01/13/2011 11/18/2010, 10/19/2010, 10/13/2009 Hypertension Screening (#1) 12/18/2014 Diabetes Screening 05/09/2016 05/09/2013, 05/09/2013 Lipid Screening 05/09/2018 05/09/2013 Imm-DTaP/Tdap/Td (3 - Td or Tdap) 10/14/2019 010, 09/10/2009 CT Colonography 2021 Colonoscopy 2021 Colorectal Cancer Screening 2021 FIT/gFOBT 2021 Fecal DNA 2021 Flexible Sigmoidoscopy 2021 Duc-YEUTT-17 ( season) 2024 021, 12/01/2020 Alcohol and Drug Screen 06/27/2024 Depression Annual Screen 06/27/2024 Imm-Influenza (#1) 2025 05/08/2010 Procedures Procedure Name Priority Date/Time Associated Diagnosis Comments COMPREHENSIVE METABOLIC PANEL Routine 05/09/2013 10:50 AM EST Routine general medical examination at a health care facility LIPID PANEL Routine 05/09/2013 10:50 AM EST Hypertriglyceridemi a from Last 3 Months or Most Recently Relevant to Health Maintenance Results * (ABNORMAL) LIPID PANEL (05/09/2013 10:50 AM EST) CHOLESTEROL 192 0 - 200 mg/dL [facility] TRIGLYCERIDES 199(H) 0 - 150 mg/dL [facility] HDL CHOLESTEROL 49 >40 mg/dL [facility] LDL CALCULATED 104(H) 0 - 100 mg/dL [facility] TC-HDLC RATIO 3.9 0 - 4.4 mg/dL [facility] Blood specimen (specimen) Blood / Unknown 05/09/2013 10:50 AM EST 05/09/2013 10:57 AM EST Narrative [facility] - 05/09/2013 12:52 PM EST [facility] [employer] [address] [place] [address] [place] [id number] ORD# [id number] us [facility] - BLOOD DRAW Final Res ult [facility] [address] [place] [address], * COMPRE METAB PANEL (05/09/2013 10:50 AM EST) GLUCOSE 80 70 - 100 mg/dL [facility] Comment:Reference range appl icable to fasting specimens only BUN 12 5 - 25 mg/dL [facility] CREAT 0.87 0.7 - 1.3 mg/dL [facility] GLOMERULAR FILTRATION RATE >60 [facility] Comment: If patient is -[place], multiply result by 1.21 Chronic Kidney Disease: < 60 ml/min/1.73 square meters Kidney Failure: < 15 ml/min/1.73 square meters SODIUM 139 133 - 145 mEq/L [facility] POTASSIUM 4.7 3.5 - 5.5 mEq/L [facility] CHLORIDE 102 96 - 110 mEq/L [facility] CO2 27 21 - 32 mEq/L [facility] ANION GAP 10 3 - 11 [facility] CALCIUM 9.9 8.5 - 10.5 mg/dL [facility] TOTAL PROTEIN 8.0 6.0 - 8.0 G/dL [facility] ALBUMIN 4.9 3.2 - 5.0 G/dL [facility] BILI, TOTAL 0.7 0.0 - 1.4 mg/dL [facility] SGOT 29 10 - 42 U/L [facility] SGPT 38 10 - 60 U/L [facility] ALK PHOS 116 42 - 121 U/L [facility] Blood specimen (specimen) Blood / Unknown 05/09/2013 10:50 AM EST 05/09/2013 10:57 AM EST Narrative [facility] - 05/09/2013 12:52 PM EST [employer] [address] [place] [address] [place] [id number] ORD# [id number] [facility] - BLOOD DRAW Final Res ult [facility] [address] [place] [address], from Last 3 Months or Most Recently Relevant to Health Maintenance Insurance [employer] Care Teams Truck Sales Representative Relationship Specialty Start Date End Date Zonia Reeder PA [address] [place] [address] PCP - General 02/08/13
--- OUTSIDE RECORDS SUMMARY | 2025-01-17 06:44 | XMS_ITS | Clinical Summary ---
Author Organization [facility] Address [address] [place] [address] Phone Care Team Providers Care Vocational Education Teacher Name Role Phone Kevin Basurto MD Primary Care Provider +1 [phone] Surgical History Surgery Date Site/Laterality Comments TONSILLECTOMY PROCEDURE: HISTORICAL TONSILLECTOMY Social History Tobacco Use Types Packs/Day Years Used Date Smoking Tobacco: Never Smokeless Tobacco: Never Alcohol Use Standard Drinks/Week Comments Never 0 (1 standard drink = 0.6 oz pur e alcohol) Sex and Gender Information Value Date Recorded Sex Assigned at Not on file Legal Sex Male 5:31 AM EST Gender Identity Not on file Sexual Orientation [...] - Td or Tdap) 10/14/2019 10/13/2009, 09/10/2009 Colorectal Cancer Screening: Colonoscopy 05/30/2022 HIV Screening 05/30/2022 Hepatitis C Screening 05/30/2022 Social Influencers of Health Screening 05/30/2022 COVID-19 Vaccine (3 - 2023-2 5 season) 2024 01/19/2021, 12/01/2020 Depression Screening 06/27/2024 Influenza Vaccine (#1) 2025 05/08/2010 Hypertension/CHF/CAD Annual BMP Blood Test 07/12/2025 07/12/2024, 05/09/2013 Cholesterol Screening (Lipid Panel) 07/12/2029 07/12/2024, 05/09/2013 MMR Vaccines Aged Out 10/13/2009, 09/10/2009 No [...] patient's age to complete this topic Meningococcal B Vaccine Aged Out No l onger eligible based on patient's age to complete this topic Pneumococcal Vaccine: Pediatrics (0 to 5 Years) and At-Risk Patients (6 to 49 Years) Aged Out No longer eligible b ased on patient's age to complete this topic RSV Immunization Patients Under 20 months Aged Out No longer eligible b ased on patient's age to complete this topic Varicella Vaccines Aged Out No longer eligible based on patient's age to complete this topic Insurance MEDICAID - [place] Care Teams Vocational Education Teacher Relationship Specialty Start Date End Date Kevin Basurto MD [address] [place], [place] PCP - General Internal Medicine 12/07/21
--- OUTSIDE RECORDS SUMMARY | 2025-01-17 06:44 | XMS_ITS | Clinical Summary ---
Author Organization [employer] Address [address] [place] [address] Care Team Providers Care Boarder Hand Name Role Phone Kevin Basurto MD Primary Care Provider [phone] Allergies No known active allergies Medications Blood Pressure kitIndications:E levated BP without diagnosis of hypertension To check the BP daily 1 kit 11/12/19 23 Active Omeprazole 20 MG tablet delayed-releaseI ndications:Gastr oesophageal reflux disease without esophagitis Take 1 tablet (20 mg) by mouth Once per day. 30 tablet 3 07/12/19 25 Active finasteride (Propecia) 1 MG tabletIndication s:Dysuria Take 1 tablet (1 mg) by mouth Once per day. Do not crush, chew, or split. 30 tablet 07/12/19 25 026 Active fenofibrate (Tricor) 48 MG tabletIndication s:Hypertriglycer idemia Take 1 tablet (48 mg) by mouth Once per day. 30 tablet 07/13/19 25 026 Active losartan (Cozaar) 25 MG tabletIndication s:Primary hypertension Take 1 tablet (25 mg) by mouth Once per day. 30 tablet 09/19/19 25 026 Active azithromycin (Zithromax) 250 MG tabletIndication s:Bronchitis Take 2 tabs orally on day 1 then 1 tab orally daily for 4 more days 6 tablet 10/18/19 25 Active methocarbamol (Robaxin) 750 MG tabletIndication s:Muscle spasm of back,Muscle spasm of back Take 1 tablet (750 mg) by mouth 4 times daily for 10 days. 40 tablet 12/22/19 25 Active topiramate (Topamax) 50 MG tabletIndication s:Migraine with aura and without status migrainosus, not intractable Take 1 tablet (50 mg) by mouth 2 times daily. 60 tablet 11 12/22/19 25 Active SUMAtriptan (Imitrex) 25 MG tabletIndication s:Migraine with aura and without status migrainosus, not intractable Take 1 tablet (25 mg) by mouth 1 (one) time if needed for migraine for up to 27 doses. May repeat dose once in 2 hours if no relief. Do not exceed 2 doses in 24 hours. 9 tablet 2 12/22/19 25 Active meloxicam (Mobic) 15 MG tabletIndication s:Muscle spasm of back,Muscle spasm of back,Right wrist pain Take 1 tablet (15 mg) by mouth Once per day. 30 tablet 11 12/22/19 25 026 Active SUMAtriptan (Imitrex) 25 MG tabletIndication s:Migraine with aura and without status migrainosus, not intractable Take 1 tablet (25 mg) by mouth 1 (one) time if needed for migraine for up to 27 doses. May repeat dose once in 2 hours if no relief. Do not exceed 2 doses in 24 hours. 9 tablet 2 07/12/19 25 025 Discontinued(Re order (will not trigger notification to Pharmacy)) topiramate (Topamax) 50 MG tabletIndication s:Migraine with aura and without status migrainosus, not intractable Take 1 tablet (50 mg) by mouth 2 times daily. 60 tablet 11 07/12/19 25 025 Discontinued(Re order (will not trigger notification to Pharmacy)) methocarbamol (Robaxin) 750 MG tabletIndication s:Muscle spasm of back,Muscle spasm of back Take 1 tablet (750 mg) by mouth 4 times daily for 10 days. 40 tablet 09/19/19 25 025 Discontinued(Re order (will not trigger notification to Pharmacy)) Active Problems Problem Noted Date Diagnosed Date Primary hypertension 09/18/2024 Fatty liver 09/18/2024 Chronic allergic rhinitis 11/11/2022 Overview (11/11/2022): Follow up Dr. Strauss Vitamin D deficiency disease 11/11/2022 Overview (11/11/2022): = 14 01/27/10 = 9 07/21/11 Sciatica 11/30/2017 Migraine 01/20/2015 GLENDY on CPAP 06/06/2012 Overview (11/11/2022): CPAP tit 04/[address] Strauss Hypertriglyceridemia 10/20/2011 Headache(784.0) 10/19/2011 Overview (03/27/2023): Suspect due to chronic rhinosinusitis Follow up enterostomal therapy nurse Dr. Strauss Replace inactive dx Encounters Date Type Department Care Team Description 12/25/2024 Results Follow-Up [facility] [address] [place] [address] Edna Tamez RN Lipid Panel, Standard, Comprehensive Metabolic Panel, Sed Rate by Modified Westergren, C-reactive Protein 12/21/2024 2:30 PM EDT Office Visit [facility] [address] [place] [address] Kevin Basurto MD Right wrist pain (Primary Dx); Muscle spasm of back; Muscle spasm of back; Migraine with aura and without status migrainosus, not intractable; Hypertriglyceridemia 12/21/2024 Travel from Last 3 Months Immunizations Immunization Administration Dates Next Due Hep B, adult [...] Tobacco: Never Tobacco Cessation:Counseling Given: Not Answered Depression Answer Date Recorded Patient Health Questionnaire-9 Score 0 09/18/2024 Patient Health Questionnaire-9 Score 0 09/18/2024 Last PHQ-9: Questionnaire Data Not on file 0 09/18/2024 Housing Stability Answer Date Recorded What is your housing situation today? I have jesús youssef 09/18/[address] you li ve. Do you have problems with any of the following? None of the above 09/18/2024 Food Insecurity Answer Date Recorded Within the past 12 months, y ou worried that your food would run out before you got money to buy more: Never True 09/18/2024 Within the past 12 months,th e food you bought just didn't last and you didn't have enough money to get more: Never True Transportation Answer Date Recorded In the past 12 months, has l ack of transportation kept you from medical appts, meetings, work or from getting things needed for daily living? No 09/18/2024 Utilities Answer Date Recorded In the past 12 months, has t he electric, gas, oil or water company threatened to shut off services in your home? No 09/18/2024 Depression Answer Date Recorded Patient Health Questionnaire-2 Score 0 09/18/2024 Internet Access Answer Date Recorded Internet Access Q1 Yes 09/18/2024 Internet Access Q2 Not on file 09/18/2024 Sex and Gender Information Value Date Recorded Sex Assigned at Male 04/26/2022 10:27 AM EDT Legal Sex Male 10:27 AM EDT Gender Identity Choose not to disclose 10:27 AM EDT Sexual Orientation Choose not to disclose 2021 10:27 AM EDT Last Filed Vital Signs Vital Sign Reading Time Taken Comments Blood Pressure 115/77 12/21/2024 2:20 PM EDT Pulse 71 12/21/2024 2:20 PM EDT Temperature 36.7 C (98.1 F) 12/21/2024 2:20 PM EDT Respiratory Rate 20 12/21/2024 2:20 PM EDT Oxygen Saturation 99% 12/21/2024 2:20 PM EDT Inhaled Oxygen Concentration - - Weight 76.7 kg (169 lb) 12/21/2024 2:20 PM EDT Height 167.6 cm (5' 6 ) 12/21/2024 2:20 PM EDT Body Mass Index 27.28 12/21/2024 2:20 PM EDT Plan of Treatment Health Maintenance Due Date Last Done Comments CT Colonography 1976 Colonoscopy 1976 Colorectal Cancer Screening 1976 FIT DNA/Cologuard 1976 FIT 1976 FOBT 1976 HIV Screening 1976 Sigmoidoscopy 1976 Disability Screening 1976 Family Planning (PISQ) 1991 Hepatitis A Vaccines (1 of 2 - Risk 2-dose series) 1995 Hepatitis B Vaccines (3 of 3 - 19+ 3-dose series) 01/13/2011 11/18/2010, 10/19/2010, 10/13/2009 DTaP/Tdap/Td Vaccines (3 - T d or Tdap) 10/14/2019 10/13/2009, 09/10/2009 COVID-19 Vaccine (3 - 2023-2 5 season) 2024 01/19/2021, 12/01/2020 Influenza Vaccine (#1) 2025 0, 05/08/2010 Alcohol/Substance Use Screening 09/18/2025 09/18/2024 Depression Screening 09/18/2025 09/18/2024, 09/18/2024 SDOH Screening 09/18/2025 09/18/2024 Tobacco Screening 12/21/2025 12/21/2024 Zoster Vaccines (1 of 2) 2026 Lipid Panel 12/24/2029 12/24/2024, 07/12/2024, 11/27/2020 RSV Patients and Patients Aged 60 years or older (1 - 1-dose 75+ series) 2051 Meningococcal Vaccine Aged Out 08/04/2012 No ana maría sebastian eligible based on patient's age to complete this topic Hepatitis C Screening Completed 07/17/2024 HIB Vaccines Aged Out No longer eligi [...] 5 Years) and At-Risk Patients (6 to 49) Years Aged Out No longer eligible b ased on patient's age to complete this topic RSV under 20 months Aged Out No longe r eligible based on patient's age to complete this topic Rotavirus Vaccines Aged Out No longer eligible based on patient's age to complete this topic Procedures Procedure Name Priority Date/Time Associated Diagnosis Comments C-REACTIVE PROTEIN Routine 12/24/2024 9: 53 AM EDT Muscle spasm of back Muscle spasm of back SED RATE BY MODIFIED WESTERGREN Routine 12/24/2024 9:53 AM EDT Muscle spasm of back Muscle spasm of back COMPREHENSIVE METABOLIC PANEL Routine 12/24/2024 9:53 AM EDT Hypertriglyceridem ia LIPID PANEL, STANDARD Routine 12/24/2024 9:53 AM EDT Hypertriglyceridem ia HEPATITIS PANEL, GENERAL Routine 07/17/2024 1:19 PM EST Transaminitis from Last 3 Months or Most Recently Relevant to Health Maintenance Results * Sed Rate by Modified Westergren (12/24/2024 9:53 AM EDT) Erythrocyte Sedimentation Rate 4 0 - 15 MM/HR [facility] Comment:Patients with polycy themia and many hemoglobin abnormalitiesmay have depressed sed rates whereas patients with anemiamay have elevated sed rates. Blood Venous blood specimen / Unknown 12/24/2024 9:53 AM EDT 12/24/2024 2:49 PM EDT us Kevin Basurto MD LAB BLOOD ORDERABLES Final Result [facility] [address] [place] [phone] * C-reactive Protein (12/24/2024 9:53 AM EDT) C Reactive Protein 0.25 < or = 0.50 mg/dL [facility] Blood Venous blood specimen / Unknown 12/24/2024 9:53 AM EDT 12/24/2024 2:45 PM EDT us Kevin Basurto MD LAB BLOOD ORDERABLES Final Result Performing Organization Address City[facility] Co de Phone Number [facility] [address] [place] [phone] * (ABNORMAL) Lipid Panel, Standard (12/24/2024 9:53 AM EDT) Triglycerides 179(H) <150 mg/dL [facility] Comment:Desirable Triglyceri de: less than 150 mg/dLBorderline High Triglyceride 150-199 mg/dLHigh Triglyceride: 200-499 mg/dLVery High Triglyceride: greater than or equal to 5OO mg/dL Cholesterol 202(H) <200 mg/dL [facility] Comment:Desirable Cholestero l: less than 200 mg/dLBorderline High Cholesterol: 200-239 mg/dLHigh Cholesterol: greater than 239 mg/dL LDL Cholesterol Calculated 128(H) <100 mg/dL [facility] Comment:Desirable LDL: less than 100 mg/dLNear Optimal/Above Optimal LDL: 110- 129 mg/dLBorderline High LDL: 130-159 mg/dLHigh LDL: 160-189 mg/dLVery High LDL: greater than or equal to 190 mg/dL HDL Cholesterol 39(L) >40 mg/dL [facility] Comment:Desirable HDL: great er than 40 mg/dL Note: This HDL assay may give artificially low results in patients with liver disease. Blood Venous blood specimen / Unknown 12/24/2024 9:53 AM EDT 12/24/2024 2:45 PM EDT us Kevin Basurto MD LAB BLOOD ORDERABLES Final Result [facility] [address] [place] [phone] * (ABNORMAL) Comprehensive Metabolic Panel (12/24/2024 9:53 AM EDT) Sodium 140 135 - 145 mmol/L [facility] Potassium 3.9 3.3 - 5.1 mmol/L [facility] Chloride 111(H) 96 - 108 mmol/L [facility] Carbon Dioxide 22 22 - 29 mmol/L [facility] Anion Gap 11(L) 12 - 20 [facility] Urea Nitrogen (BUN) 20(H) 9 - 16 mg/dL [facility] Creatinine, Serum 0.98 0.5 - 1.4 mg/dL [facility] Estimated Glomerular Filt Rate >60 [facility] Comment:Chronic Kidney Disea se: Estimated GFR < 60 mL/min/[id number] Kidney Disease: Estimated GFR < 15 mL/min/1.73m2 Glucose 94 60 - 115 mg/dL [facility] Calcium 9.2 8.4 - 10.2 mg/dL [facility] Bilirubin, Total 0.5 0.0 - 1.0 mg/dL [facility] Aspartate Amino Transferase 27 5 - 37 U/L [facility] Alanine Aminotransferase 46(H) 0 - 40 U/L [facility] Total Protein 7.4 6.5 - 8.0 g/dL [facility] Albumin Level 4.7 3.5 - 5.0 g/dL [facility] Alkaline Phosphatase 89 39 - 117 U/L [facility] Blood Venous blood specimen / Unknown 12/24/2024 9:53 AM EDT 12/24/2024 2:45 PM EDT us Kevin Basurto MD LAB BLOOD ORDERABLES Final Result [facility] [address] [place] [phone] * Hepatitis A,B,C Profile (07/17/2024 1:19 PM EST) Hepatitis A IgM Nonreactive Nonreactive [facility] Comment:IgM antibodies to MOORE V not detected; does not exclude earlyacute or recovered HAV infection. ~Hepatitis B Surface Antibody REACTIVE Nonreactive [facility] Comment:REACTIVE: > 11.99 mI U/mL Hepatitis B Core Antibody Nonreactive Nonreactive [facility] Hepatitis C Antibody Nonreactive Nonreactive [facility] Comment:Antibodies to HCV no t detected; does not exclude early acuteHCV infection. Hepatitis B Surface Ag Negative Negative [facility] Blood Venous blood specimen / Unknown 07/17/2024 1:19 PM EST 07/17/2024 2:45 PM EST us Kevin Basurto MD LAB BLOOD ORDERABLES Final Result [facility] [address] [place] [phone] from Last 3 Months or Most Recently Relevant to Health Maintenance Insurance [facility] C3 Care Teams Boarder Hand Relationship Specialty Start Date End Date Kevin Basurto MD [address] [place] [phone] PCP - General Internal Medicine 12/24/14
[2025-01-17 07:31] LABS: Cholesterol 175 mg/dL (<200); HDL Cholesterol 41 mg/dL (>40); Triglycerides 107 mg/dL (<150)
== END 2025-01-17 06:42 | disposition home or self-care (01) ==
LOC: HO.LAB 06:41
PROVIDERS: PCP Internal Medicine; Visit Provider Internal Medicine Cardiovascular Disease
DX: E78.5 Hyperlipidemia, unspecified (principal)
CPT/HCPCS: 36415; 80061